=== PATIENT | female | born 1940 | race Caucasian/White ===

== ENCOUNTER 2017-06-27 10:47 | Emergency (ER) | payer MEDICARE ==
[2017-06-27 10:57] VITALS: BMI 23.6
--- NOTE | 2017-06-27 12:06 | PDOC ---
History of Present Illness - General History Source: Patient, Family - History of Present Illness Timing/Duration: reports: constant <Kwasi Narayan - Last Filed: 06/27/17 13:06> <Nanette Troncoso - Last Filed: 06/27/17 18:23> - General Chief Complaint: Rectal Bleed Stated Complaint: RECTAL BLEED Time Seen by Provider: 06/27/17 11:32 Past History - Past Medical History COPD: No HTN: Yes Hypercholesterolemia: Yes - Surgical History Abdominal Surgery: Yes (?) - Suicide/Smoking/Psychosocial Hx Smoking History: Never smoked Hx Alcohol Use: No Drug/Substance Use Hx: No Substance Use Type: None Hx Substance Use Treatment: No <Kwasi Narayan - Last Filed: 06/27/17 13:06> <Nanette Troncoso - Last Filed: 06/27/17 18:23> - Past Medical History Allergies/Adverse Reactions: Allergies Allergy/AdvReac Type Severity Reaction Status Date / Time No Allergy Information Allergy Verified 06/27/17 10:58 Available Home Medications: Ambulatory Orders Aspirin [ASA -] 81 mg PO DAILY 12/06/13 Atorvastatin Ca [Lipitor] 10 mg PO HS 12/06/13 Lisinopril [Prinivil] 10 mg PO DAILY 12/06/13 NK [No Known Home Medication] 12/06/13 Multivitamins [Multivit ([facility])] 1 tab PO DAILY 06/18/15 Review of Systems - Review of Systems Constitutional: No: Chills, Fever, Malaise, Weakness, Unexplained wgt Loss ABD/GI: No: Constipated, Diarrhea, Nausea, Vomiting, Abdominal cramping <Kwasi Narayan - Last Filed: 06/27/17 13:06> *Physical Exam - Vital Signs Last Vital Signs Temp Pulse Resp BP Pulse Ox 97.9 F 69 16 124/63 99 06/27/17 10:53 06/27/17 10:53 06/27/17 10:53 06/27/17 10:53 06/27/17 10:53 - Physical Exam General Appearance: Yes: Appropriately Dressed. No: Apparent Distress HEENT: positive: Normal Voice Neck: positive: Supple Respiratory/Chest: negative: Respiratory Distress Gastrointestinal/Abdominal: positive: Soft. negative: Tender Rectal Exam: positive: heme negative stool. negative: melena Integumentary: positive: Dry, Warm Neurologic: positive: Fully Oriented, Alert, Normal Mood/Affect <Kwasi Narayan - Last Filed: 06/27/17 13:06> - Vital Signs Last Vital Signs Temp Pulse Resp BP Pulse Ox 98 F 61 14 130/69 100 06/27/17 13:23 06/27/17 13:23 06/27/17 13:23 06/27/17 13:23 06/27/17 13:23 <Nanette Troncoso - Last Filed: 06/27/17 18:23> ED Treatment Course - LABORATORY CBC & Chemistry Diagram: 06/27/17 12:10 06/27/17 12:10 - ADDITIONAL ORDERS Additional order review: Laboratory Results 06/27/17 11:47 Stool Occult Blood Negative <Kwasi Narayan - Last Filed: 06/27/17 13:06> - LABORATORY CBC & Chemistry Diagram: 06/27/17 12:10 06/27/17 12:10 - ADDITIONAL ORDERS Additional order review: Laboratory Results 06/27/17 06/27/17 06/27/17 12:30 12:10 12:10 PT with INR 11.20 INR 0.99 Sodium 140 Potassium 4.4 Chloride 105 Carbon Dioxide 32 Anion Gap 3 L BUN 19 H Creatinine 1.2 H Creat Clearance w eGFR 43.45 Random Glucose 97 Calcium 8.7 Total Bilirubin 0.4 D AST 15 ALT 19 Alkaline Phosphatase 76 Total Protein 7.0 Albumin 3.7 Urine Color Yellow Urine Appearance Slcloudy Urine pH 8.0 Ur Specific [place] 1.016 Urine Protein Negative Urine Glucose (UA) Negative Urine Ketones Negative Urine Blood Negative Urine Nitrite Negative Urine Bilirubin Negative Urine Urobilinogen Negative Ur Leukocyte Esterase Negative Stool Occult Blood Blood Type Antibody Screen 06/27/17 06/27/17 12:10 11:47 PT with INR INR Sodium Potassium Chloride Carbon Dioxide Anion Gap BUN Creatinine Creat Clearance w eGFR Random Glucose Calcium Total Bilirubin AST ALT Alkaline Phosphatase Total Protein Albumin Urine Color Urine Appearance Urine pH Ur Specific [place] Urine Protein Urine Glucose (UA) Urine Ketones Urine Blood Urine Nitrite Urine Bilirubin Urine Urobilinogen Ur Leukocyte Esterase Stool Occult Blood Negative Blood Type AB POSITIVE Antibody Screen Negative 06/27/17 12:10 RBC 4.37 MCV 90.3 MCHC 32.9 RDW 12.6 MPV 8.9 Neutrophils % 63.1 Lymphocytes % 26.4 Monocytes % 7.7 Eosinophils % 1.7 Basophils % 1.1 <Nanette Troncoso - Last Filed: 06/27/17 18:23> Medical Decision Making - Medical Decision Making 06/27/17 12:01 77 yo F, h/o HTN, HLD on asa, here w/ "dark" stool, "almost black" per daughter x 1 week. No BRBPR, abd pain, dizziness, weakness, n/v/f/c. No h/o GIB. Not on iron pills. Had polyps removed during routine colonoscopy 4 year ago. No h/o malignancy and no h/o recent unexplained weight loss See exam ?Melena Well alyssa, stable and in NAD Abd benign w/ dark brown, guaiac neg stool, no gross melena or BRBPR -will check labs if neg, will dc w/ pmd f/u 06/27/17 13:06 Labs unremarkable. Pt remained well alyssa and stable. Dc w/ reassurance and PMD f/ u <Kwasi Narayan - Last Filed: 06/27/17 13:06> *DC/Admit/Observation/Transfer <Kwasi Narayan - Last Filed: 06/27/17 13:06> - Attestations Physician Attestion: I reviewed the case with the mid-level practitioner and agree with the mid- level practitioner's assessment, diagnosis and disposition. <Nanette Troncoso - Last Filed: 06/27/17 18:23> Diagnosis at time of Disposition: Dark stools - Discharge Dispostion Disposition: HOME Condition at time of disposition: Good - Patient Instructions Additional Instructions: There is no evidence that you have a GI bleed at this time. Please follow-up with your PMD as needed
[2017-06-27 12:16] LABS: BASO % 1.1 % (0-2.0); EOS % 1.7 % (0-4.5); HEMATOCRIT 39.5 % (32.4-45.2); LYMPH % 26.4 % (8-40); MCH 29.7 pg (25.7-33.7); MCHC 32.9 g/dl (32.0-36.0); MEAN CELL VOLUME 90.3 fl (80-96); MEAN PLT VOLUME 8.9 fl (7.5-11.1); MONO % 7.7 % (3.8-10.2); NEUT % 63.1 % (42.8-82.8); PLATELET COUNT 248 K/MM3 (134-434); RBC 4.37 M/mm3 (3.60-5.2); RDW 12.6 % (11.6-15.6); WHITE BLOOD COUNT 6.8 K/mm3 (4.0-10.0)
[2017-06-27 12:28] LABS: INR 0.99 (0.82-1.09); PROTHROMBIN TIME (PATIENT) 11.2 SEC (9.98-11.88)
[2017-06-27 12:35] LABS: URINE APPEARANCE SLCLOUDY; URINE BILIRUBIN NEGATIVE (NEGATIVE); URINE BLOOD NEGATIVE (NEGATIVE); URINE COLOR YELLOW; URINE GLUCOSE (UA) NEGATIVE (NEGATIVE); URINE KETONE NEGATIVE (NEGATIVE); URINE LEUK ESTERASE NEGATIVE (NEGATIVE); URINE NITRITE NEGATIVE (NEGATIVE); URINE PROTEIN NEGATIVE (NEGATIVE); URINE UROBILINOGEN NEGATIVE mg/dL (0.2-1.0)
[2017-06-27 12:46] LABS: ALBUMIN 3.7 g/dl (3.4-5.0); ALK PHOS 76 U/L (45-117); ANION GAP 3 (8-16); BILIRUBIN,TOTAL 0.4 mg/dL (0.2-1.0); BLOOD UREA NITROGEN 19 mg/dL (7-18); CALCIUM 8.7 mg/dL (8.5-10.1); CHLORIDE 105 mmol/L (98-107); CO2 32 mmol/L (21-32); CREATININE 1.2 mg/dL (0.55-1.02); GLUCOSE,RANDOM 97 mg/dL (74-106); POTASSIUM 4.4 mmol/L (3.5-5.1); SGOT/AST 15 U/L (15-37); SGPT/ALT 19 U/L (12-78); SODIUM 140 mmol/L (136-145)
[2017-06-27 13:24] VITALS: BP 130/69; PULSE 61; TEMP 98
--- NOTE | 2017-06-27 23:09 | EKG ---
Test Reason : Blood Pressure : / mmHG Vent. Rate : 064 BPM Atrial Rate : 064 BPM P-R Int : 166 ms QRS Dur : 084 ms QT Int : 380 ms P-R-T Axes : 065 036 044 degrees QTc Int : 392 ms NORMAL SINUS RHYTHM NORMAL ECG WHEN COMPARED WITH ECG OF 10-JUL-2014 16:31, NO SIGNIFICANT CHANGE WAS FOUND Confirmed by JESUS RICHARDSON MD ([id number]) on 06/27/2017 11:08:52 PM Referred By: Confirmed By:JESUS RICHARDSON MD
== END 2017-06-27 13:23 | disposition home or self-care (01) ==
LOC: JER 10:47
DX: R19.5 Other fecal abnormalities (principal); I10 Essential (primary) hypertension; E78.00 Pure hypercholesterolemia, unspecified
CPT/HCPCS: 36415; 80053; 81003; 82272; 85025; 85610; 86850; 86900; 86901; 93005; 93010; 99284-25

== ENCOUNTER 2022-10-18 20:58 | Observation (INO) | payer OTHER ==
[2022-10-18] MEDS ORDERED: LORazepam 2 MG/ML SDV VIAL IM ONE (21:30)
[2022-10-18 22:20] LABS: EOS % 2.7 % (0-4.5); HEMATOCRIT 36.1 % (32.4-45.2); HEMOGLOBIN 11.8 GM/dL (10.7-15.3); MCH 29.5 pg (25.7-33.7); MCHC 32.8 g/dl (32.0-36.0); MEAN CELL VOLUME 90.1 fl (80-96); MEAN PLT VOLUME 8.6 fl (7.5-11.1); MONO % 7.3 % (3.8-10.2); PLATELET COUNT 285 10^3/uL (134-434); RDW 12.8 % (11.6-15.6)
[2022-10-18 22:26] LABS: INR 1.01 (0.83-1.09); PROTHROMBIN TIME (PATIENT) 11.7 SEC (9.7-13.0)
[2022-10-18 22:28] LABS: ACTIVATED PTT 30.3 SECONDS (25.2-36.5)
[2022-10-18 22:41] LABS: POTASSIUM 4.6 mmol/L (3.5-5.1)
[2022-10-18 22:43] LABS: CALCIUM 9.5 mg/dL (8.5-10.1)
[2022-10-18 22:44] LABS: ALBUMIN 3.4 g/dl (3.4-5.0)
[2022-10-18 22:45] LABS: BLOOD UREA NITROGEN 39.3 mg/dL (7-18)
[2022-10-18 22:47] LABS: CREATININE 1.3 mg/dL (0.55-1.3)
[2022-10-18 22:49] LABS: TOT PROT 6.7 g/dl (6.4-8.2)
[2022-10-18 22:50] LABS: BILIRUBIN,TOTAL 0.3 mg/dL (0.2-1)
[2022-10-18] MEDS ORDERED: predniSONE 20 MG TABLET (UD) ONE (23:52)
[2022-10-18] MEDS ORDERED: valACYclovir HCL 500 MG TABLET (FP) ONE (23:53)
[2022-10-19] MEDS: predniSONE 20 MG TABLET (UD) PO ONE ×2 (00:06→00:08)
[2022-10-19] MEDS: valACYclovir HCL 500 MG TABLET (FP) PO ONE ×2 (00:06→00:08)
[2022-10-19 05:50] LABS: PH,URINE 5.5 (5.0-8.0); URINE APPEARANCE CLEAR; URINE BILIRUBIN NEGATIVE (NEGATIVE); URINE COLOR YELLOW; URINE GLUCOSE (UA) NEGATIVE (NEGATIVE); URINE KETONE NEGATIVE (NEGATIVE); URINE LEUK ESTERASE NEGATIVE (NEGATIVE); URINE NITRITE NEGATIVE (NEGATIVE); URINE PROTEIN NEGATIVE (NEGATIVE); URINE UROBILINOGEN 0.2 mg/dL (0.2-1.0)
[2022-10-19 06:33] LABS: BASO % 0.8 % (0-2.0); EOS % 0.1 % (0-4.5); HEMATOCRIT 33.5 % (32.4-45.2); HEMOGLOBIN 11.3 GM/dL (10.7-15.3); LYMPH % 14.5 % (8-40); MCHC 33.7 g/dl (32.0-36.0); MEAN CELL VOLUME 91.9 fl (80-96); MEAN PLT VOLUME 9.2 fl (7.5-11.1); MONO % 0.7 % (3.8-10.2); NEUT % 83.9 % (42.8-82.8); PLATELET COUNT 273 10^3/uL (134-434); RBC 3.65 M/mm3 (3.60-5.2); RDW 12.6 % (11.6-15.6)
[2022-10-19 06:45] LABS: BLOOD UREA NITROGEN 37.4 mg/dL (7-18)
[2022-10-19 06:48] LABS: CREATININE 1.3 mg/dL (0.55-1.3)
[2022-10-19 07:28] LABS: POTASSIUM 4.5 mmol/L (3.5-5.1)
[2022-10-19] MEDS ORDERED: ASPIRIN 81 MG CHEWABLE TABLETS ONE (09:42)
[2022-10-19] MEDS ORDERED: LISINOPRIL 10 MG TABLET ONE (09:42)
[2022-10-19] MEDS: LISINOPRIL 10 MG TABLET PO SCH (09:50)
[2022-10-19] MEDS: ASPIRIN 81 MG CHEWABLE TABLETS PO SCH (09:50)
[2022-10-19 11:15] VITALS: BMI 24.9
[2022-10-19] MEDS: MEMANTINE HCL 5 MG TABLET (UD) PO SCH ×2 (11:42→22:03)
[2022-10-19] MEDS ORDERED: ATORVASTATIN CA 10 MG TABLET (FP) PO SCH (22:00)
[2022-10-19] MEDS: valACYclovir HCL 500 MG TABLET (FP) PO SCH (22:03)
[2022-10-20 05:39] VITALS: RESP 18
[2022-10-20] MEDS: ASPIRIN 81 MG CHEWABLE TABLETS PO SCH (09:31)
[2022-10-20] MEDS: LISINOPRIL 10 MG TABLET PO SCH (09:31)
[2022-10-20] MEDS: MEMANTINE HCL 5 MG TABLET (UD) PO SCH (09:31)
[2022-10-20] MEDS: valACYclovir HCL 500 MG TABLET (FP) PO SCH (09:31)
[2022-10-20 14:27] VITALS: BP 131/86; PULSE 71; TEMP 98.2
== END 2022-10-20 14:47 | disposition home health service (06) ==
LOC: JER 20:58 → JERBED 10-19 00:22 → J6S 10-19 14:55
PROVIDERS: ADMIT Internal Medicine; ATTEND Family Medicine
PROC: 3E023GC Introduction of Other Therapeutic Substance into Muscle, Percutaneous Approach (ICD-10-PCS; principal; 2022-10-19)
DX: R29.810 Facial weakness (principal); G30.9 Alzheimer's disease, unspecified; F02.80 Dementia in other diseases classified elsewhere, unspecified severity, without behavioral disturbance, psychotic disturbance, mood disturbance, and anxiety; I10 Essential (primary) hypertension; I63.9 Cerebral infarction, unspecified; E78.5 Hyperlipidemia, unspecified; E11.9 Type 2 diabetes mellitus without complications; Q67.0 Congenital facial asymmetry; R23.8 Other skin changes; B02.21 Postherpetic geniculate ganglionitis; B02.9 Zoster without complications
CPT/HCPCS: 36415; 70450-TC; 71045-TC-FY; 80048; 80053; 80061; 81003; 82550; 82962; 83036; 84443; 84484; 85025; 85610; 85730; 86850; 86900; 86901; 87635; 93005; 93010; 96372; 97116-GP; 97162-GP; 99285-25; G0378